=== PATIENT | male | born 2000 | race Hispanic/Latino ===

== ENCOUNTER 2022-10-22 21:45 | Emergency (ER) | payer OTHER, BC ==
[~2022-10-22] VITALS: Ht 182.9 cm; Wt 158.8 kg
[2022-10-22] MEDS ORDERED: DICL100T85 PO (23:43)
[2022-10-22 23:45] VITALS: BP 148/98
== END 2022-10-22 23:50 | disposition home or self-care (01) ==
LOC: EDH 21:45
DX: M25.562 Pain in left knee (principal); Z90.89 Acquired absence of other organs; Z88.1 Allergy status to other antibiotic agents
CPT/HCPCS: 73562